=== PATIENT | female | born 1975 | race Caucasian/White ===

== ENCOUNTER 2016-10-14 06:39 | Day surgery (SDC) | payer MEDICARE, OTHER ==
[2016-10-12 12:58] LABS: HEMATOCRIT 43.4 % (36.0-48.0); HEMOGLOBIN 14.2 g/dL (12.0-16.0)
[2016-10-12 13:12] LABS: BUN (BLOOD UREA NITROGEN) 7 MG/DL (6-23); CALCIUM, SERUM 9.5 MG/DL (8.5-10.4); CHLORIDE, SERUM 101 MMOL/L (96-112); CO2 (CARBON DIOXIDE) 28 MMOL/L (24-34); CREATININE 0.98 MG/DL (0.55-1.02); GFR AFRICAN AMERICAN 82 ML/MIN (>=60); GFR NON AFRICAN AMERICAN 71 ML/MIN (>=60); GLUCOSE, SERUM 234 MG/DL (60-99); POTASSIUM, SERUM 4.6 MMOL/L (3.5-5.3); SODIUM, SERUM 135 MMOL/L (135-148)
--- NOTE | ~2016-10-14 | OP ---
Record Of Operation [facility] [address] [place]. [address] NAME: GARRICK MOLINA : 71 STATUS : [facility]#: [id number] AGE: 41 ADM/REG DATE : 10/14/16 MR#: [id number] REPORT SERV DATE: 10/14/16 DICTATED BY: NATHANIEL SHORT DATE: 10/14/16 REPORT STATUS : Draft TRANSCRIBED BY: MODBubba DATE: 10/14/16 DATE OF PROCEDURE: 10/14/2016 PREOPERATIVE DIAGNOSIS: Need for IV access for immunoglobulin infusion. POSTOPERATIVE DIAGNOSIS: Need for IV access for immunoglobulin infusion. PROCEDURE: Insertion PowerPort, left subclavian vein site. DESCRIPTION OF OPERATIVE PROCEDURE: The patient was brought to the operating suite, placed in supine position, underwent satisfactory LMA anesthesia. The skin of the upper chest and neck to the jaw line and to the nipples of the chest were scrubbed, prepped, and draped in usual sterile fashion. 0.5% Marcaine with epinephrine was utilized as supplemental local anesthesia. The patient was placed in Trendelenburg position, and initially, the right subclavian vein was cannulated. Two cannulations were performed, but the guidewire would never advance satisfactorily towards the superior vena cava. Therefore attempts on the right side were abandoned and the left side was approached. Using the Seldinger technique, the left subclavian vein was cannulated and a curved flexible tip guidewire was passed smoothly and without resistance and localized fluoroscopically at the atriocaval junction. Subcutaneous pocket was created over the left pectoralis muscle. Dissecting through the skin and subcutaneous tissue. The venipuncture site with the guidewire was connected to the subcutaneous pocket and heparin flushed port tubing was brought from the port site to the venipuncture site and trimmed to 20 cm. It was affixed to the PowerPort with the locking sleeve and then the PowerPort was affixed to the pectoralis fascia at four locations using 2 0 Prolene. Peel-away introducer sheath was advanced over the guidewire smoothly and with the guidewire being removed, the sheath system was aspirated with good blood flow and then the dilator removed leaving the peel-away sheath in the vein. The heparin flushed tubing that was affixed to the port was passed down the peel-away sheath with the peel-away sheath being removed from the vein leaving the tubing in situ in the vein affixed to the port. Fluoroscopy confirmed smooth course of the tubing with the tip at the atriocaval junction. The pore was aspirated with a straight Robledo needle with good blood flow and then re-flushed with dilute clean heparinized saline. Subcutaneous tissue was irrigated and closed in two layers with interrupted 3-0 Vicryl, running subcuticular stitch 4-0 Vicryl for the skin. Prior to leaving the operating suite, the port was again cannulated with a straight Robledo needle through skin with good blood return and then re-flushed. The patient tolerated the procedure well and was returned to PACU in stable condition. At the termination of the procedure, sponge, needle, lap, and instrument counts were correct Record Of Operation [address] [address] NAME: GARRICK MOLINA : 71 STATUS : [facility] PAT#: [id number] AGE: 41 ADM/REG DATE : 10/14/16 MR#: [id number] REPORT SERV DATE: 10/14/16 DICTATED BY: NATHANIEL SHORT DATE: 10/14/16 REPORT STATUS : Draft TRANSCRIBED BY: HINA DATE: 10/14/16 x3. ESTIMATED BLOOD LOSS: Less than 5-10 mL. A postprocedure chest x-ray will be checked for port placement. LUIS/HINA Nathaniel Short M.D. / [id number] CC: Kelly Nieves M.D.
[~2016-10-14 06:39] MED LIST: ALBUTEROL5 INH; AMOXICILLIN PO; BACLOFEN20 MG PO; CONSTULOSE PO; CYMBALTA30 PO; GENERLAC PO; GLUCOPHAGE1000 MG PO; HUMALOG SC; IMITREX100 MG PO; INSULIN; IVIG IV; LEVEMFLXPN SC; LEVEMIR SC; LOP25 PO; LORTAB10 PO; MSCONTIN PO; NEUR300 PO; NEUR600 PO; NEUR800 PO; NORCO1 TAB PO; NOVOLOG SC; NOVOPEN SC; PR25 PO; PRILO PO; PRILOSEC40 MG PO; PRIN10 PO; PRINZIDE1 TA1 PO; PROVENTSOL INH; ROXICODONE15 MG PO; TRILEP300 PO; XANAX1 MG PO; XANAX2 MG PO; ZANTAC 150 PO; ZESTORETIC PO; ZESTRIL20 MG PO
== END 2016-10-14 12:06 | disposition home or self-care (01) ==
LOC: SDC 06:39
PROVIDERS: Specialist
PROC: 05H633Z Insertion of Infusion Device into Left Subclavian Vein, Percutaneous Approach (ICD-10-PCS; 2016-10-14)
PROC: B517YZA Fluoroscopy of Left Subclavian Vein using Other Contrast, Guidance (ICD-10-PCS; 2016-10-14)
PROC: 0JH60XZ Insertion of Tunneled Vascular Access Device into Chest Subcutaneous Tissue and Fascia, Open Approach (ICD-10-PCS; principal; 2016-10-14 07:45)
DX: G61.81 Chronic inflammatory demyelinating polyneuritis (principal); M19.90 Unspecified osteoarthritis, unspecified site; F31.9 Bipolar disorder, unspecified; K21.9 Gastro-esophageal reflux disease without esophagitis; F32.9 Major depressive disorder, single episode, unspecified; F41.9 Anxiety disorder, unspecified; E11.9 Type 2 diabetes mellitus without complications; H91.90 Unspecified hearing loss, unspecified ear; I10 Essential (primary) hypertension; N39.0 Urinary tract infection, site not specified; Z90.710 Acquired absence of both cervix and uterus; Z79.4 Long term (current) use of insulin; Z79.899 Other long term (current) drug therapy; Z90.49 Acquired absence of other specified parts of digestive tract; Z90.89 Acquired absence of other organs; Z98.890 Other specified postprocedural states
CPT/HCPCS: 71010; 76000; 77001; 80048; 82962; 85014; 85018; 93005; A9270-GY; C1751; J0690; J2250; J2270; J2405; J3010; Q9967